=== PATIENT | female | born 1950 | race Two or more races ===

== ENCOUNTER 2018-06-16 09:24 | Outpatient (CLI) | payer OTHER ==
[~2018-06-16 09:24] MED LIST: ASA81 MG PO; CADUET 10 MG/101 TAB PO; GLUCOTROL10 MG PO; HYZAAR 100-121 UDTAB PO; IBUPROFEN800 MG PO; LASIX20 MG PO; SEPTRA DS TABLE1 TAB PO
== END 2018-06-16 09:28 | disposition home or self-care (01) ==
LOC: RAD 09:24
DX: M46.47 Discitis, unspecified, lumbosacral region (principal); M12.88 Other specific arthropathies, not elsewhere classified, other specified site; M47.899 Other spondylosis, site unspecified

== ENCOUNTER → 2019-10-28 12:45 | Outpatient (CLI) | payer OTHER | END | disposition home or self-care (01) | LOC: LAB 12:45 | DX: I10 Essential (primary) hypertension (principal); R07.89 Other chest pain ==

== ENCOUNTER 2023-02-10 14:29 | Outpatient (CLI) | payer OTHER | END 2023-02-10 14:37 | disposition home or self-care (01) | LOC: RAD 14:29 | PROVIDERS: ATTEND Urology | DX: N20.0 Calculus of kidney (principal) ==

== ENCOUNTER 2023-03-06 14:48 | Outpatient (CLI) | payer OTHER | END 2023-03-06 14:50 | disposition home or self-care (01) | LOC: LAB 14:48 | PROVIDERS: ATTEND Urology | DX: Z20.822 Contact with and (suspected) exposure to COVID-19 (principal); I11.0 Hypertensive heart disease with heart failure; E11.9 Type 2 diabetes mellitus without complications ==

== ENCOUNTER 2023-03-27 09:36 | Outpatient (CLI) | payer OTHER ==
[~2023-03-27 09:36] MED LIST changes: +ATORVASTATIN CA10 MG; +FARXIGA10 MG; +GLIPIZIDE XL10 MG PO; +IRBESARTAN-HCT1 EACH PO; +LIPIT PO; +VASOTEC10 MG PO; +VITAMIN D PO; +VITAMIN D3250 MCG; +ZYLOPRIM100 M1 PO
== END 2023-03-27 09:41 | disposition home or self-care (01) ==
LOC: RAD 09:36
PROVIDERS: ATTEND Urology
DX: N20.0 Calculus of kidney (principal)

== ENCOUNTER 2023-03-27 13:54 | Outpatient (CLI) | payer OTHER | END 2023-03-27 13:56 | disposition home or self-care (01) | LOC: LAB 13:54 | PROVIDERS: ATTEND Urology | DX: N39.0 Urinary tract infection, site not specified (principal) ==

== ENCOUNTER 2023-07-26 07:09 | Outpatient (CLI) | payer OTHER ==
[2023-07-26 10:21] LABS: NA URINE 24 HR 141.7 mmol/24h (40-220)
[2023-07-29 14:07] LABS: C ur 1.6 mg/dL (Not Estab.); Magne u 2.9 mg/dL (Not Estab.); Phos ur 24.5 mg/dL (Not Estab.)
== END 2023-07-26 07:11 | disposition home or self-care (01) ==
LOC: LAB 07:09
PROVIDERS: ATTEND Urology
DX: N20.0 Calculus of kidney (principal)

== ENCOUNTER 2023-11-22 07:06 | Outpatient (CLI) | payer OTHER ==
[2023-11-22 09:12] LABS: CALCIUM 9.8 mg/dL (8.5-10.1); CREATININE SERUM 0.7 mg/dL (0.55-1.02); GFR 82.25; POTASSIUM 4.81 mEq/L (3.5-5.1)
== END 2023-11-22 07:07 | disposition home or self-care (01) ==
LOC: LAB 07:06
PROVIDERS: ATTEND Urology
DX: N20.0 Calculus of kidney (principal)

== ENCOUNTER 2024-11-26 07:09 | Outpatient (CLI) | payer OTHER | END 2024-11-26 07:21 | disposition home or self-care (01) | LOC: MRI 07:09 | PROVIDERS: ATTEND Specialist | DX: S59.811A Other specified injuries right forearm, initial encounter (principal); M17.10 Unilateral primary osteoarthritis, unspecified knee; T07.XXXA Unspecified multiple injuries, initial encounter | CPT/HCPCS: 73221 ==

== ENCOUNTER 2025-08-11 08:46 | Outpatient (CLI) | payer OTHER | END 2025-08-11 08:51 | disposition home or self-care (01) | LOC: MRI 08:46 | PROVIDERS: ATTEND Specialist | DX: M19.91 Primary osteoarthritis, unspecified site (principal); M25.569 Pain in unspecified knee; M17.10 Unilateral primary osteoarthritis, unspecified knee | CPT/HCPCS: 73721 ==